=== PATIENT | male | born 1980 | race Two or more races ===

== ENCOUNTER 2019-10-14 18:56 | Emergency (ER) | payer OTHER ==
[~2019-10-14] VITALS: Ht 175.3 cm; Wt 81.6 kg
--- NOTE | 2019-10-14 19:15 | NUR ---
ED Nurse Note: Report given to LAUREN Ulloa.
[2019-10-14 19:20] VITALS: BP 118/71
--- NOTE | 2019-10-14 19:20 | NUR ---
ED Nurse Note: Pt walked into ED from [facility] for medical clearence to go back to facility. 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 Pt denies wanting to harm himself or others, but states he has been feeling anxious and having panic attacks. Pt is aaox4, smells of alcohol, no cardiac or respiratory distress noted. IV line established and blood drawn and sent to lab. Will continue to monitor.
--- NOTE | 2019-10-14 19:45 | Emergency Room Report ---
History of Present Illness General Chief Complaint: General Complaint Source: Patient Present Illness HPI 39-year-old male with history of alcohol abuse currently in sober living here for medical clearance to go back to sober living. Patient was that he drank today. Denies any other drug use. Patient is not walking straight, alcohol odor has been noticed. Complains of extreme nausea. Vomits in the triage note. Denies any abdominal pain, chest pain, fever and chills, shortness of breath, headache and dizziness. Denies any SI and HI. Allergies: Coded Allergies: No Known Allergies (Unverified , 10/14/19) Patient History Past Medical History: see triage record Past Surgical History: none Family History: none Social History: ETOH Immunizations: UTD Reviewed Nursing Documentation: PMH: Agreed; PSxH: Agreed Nursing Documentation-PMH Past Medical History: No History, Except For History Of Psychiatric Problem: Yes - Depression Review of Systems All Other Systems: negative except mentioned in HPI Physical Exam Vital Signs Date Time Temp Pulse Resp B/P (MAP) Pulse Ox O2 Delivery O2 Flow Rate FiO2 10/14/19 19:04 98.1 96 16 118/71 (87) 99 Room Air Sp02 EP Interpretation: reviewed, normal General Appearance: other - Toxic Head: atraumatic Eyes: PERRL, lids + conjunctiva normal ENT: hearing intact, no angioedema Neck: supple/symm/no masses, no meningismus Respiratory: effort normal, no wheezing, chest symmetrical Cardiovascular: regular rate, rhythm, no edema Gastrointestinal: non-tender, no mass, non-distended, no rebound/guarding, normal bowel sounds Musculoskeletal: other - Altered gait Neurologic: oriented x3, sensory intact, normal speech Psychiatric: no suicidal/homicidal ideation, anxious Skin: no rash, well hydrated Lymphatic: normal inspection Medical Decision Making PA Attestation All diagnoses and treatment plans were reviewed and discussed with my supervising physician Dr. Farias Diagnostic Impression: Primary Impression: Alcohol intoxication Additional Impression: Alcohol withdrawal ER Course 39-year-old male with history of alcohol abuse currently in sober living here for medical clearance to go back to sober living. Patient was that he drank today. Denies any other drug use. Patient is not walking straight, alcohol odor has been noticed. Complains of extreme nausea. Vomits in the triage note. Denies any abdominal pain, chest pain, fever and chills, shortness of breath, headache and dizziness. Denies any SI and HI. Ddx considered but are not limited to: Alcohol intoxication with altered level of consciousness, alcohol intoxication causing pancreatitis, alcohol abuse, multi drug use and alcohol intoxication Vital signs: are WNL, pt. is afebrile H&PE are most consistent with: alcohol intoxication, alcohol withdrawal , alcohol poisoning ORDERS: Alcohol serum level, tox screen, UA, CBC, CMP, ER intervention: NS bolus, Zofran, Pepcid I signed out the patient to Dr. Farias at 8PM DISCHARGE: At this time pt. is stable for d/c to home. Will provide printed patient care instructions, and any necessary prescriptions. Care plan and follow up instructions have been discussed with the patient prior to discharge. 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 However this was not observed. Due to this new information patient needs to be further worked up for possible toxic effects. 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 The facilities phone number is Last Vital Signs Date Time Temp Pulse Resp B/P (MAP) Pulse Ox O2 Delivery O2 Flow Rate FiO2 10/14/19 19:04 98.1 96 16 118/71 (87) 99 Room Air Disposition: HOME, SELF-CARE Condition: Stable Dev Mclaughlin Oct 14, 2019 19:45
[2019-10-14 19:54] LABS: BASOPHILS % (AUTO) 0.9 % (0.0-2.0); HEMATOCRIT 50.7 % (42.0-52.0); HEMOGLOBIN 16.6 G/DL (14.2-18.0); LYMPHOCYTES % (AUTO) 14.7 % (20.0-45.0); MEAN CORPUSCULAR VOLUME 93 FL (80-99); MONOCYTES % (AUTO) 3.6 % (1.0-10.0); NEUTROPHILS % (AUTO) 80.9 % (45.0-75.0); PLATELET COUNT 315 K/UL (150-450); RED BLOOD COUNT 5.45 M/UL (4.70-6.10); WHITE BLOOD COUNT 8.8 K/UL (4.8-10.8)
[2019-10-14 19:59] LABS: ANION GAP 15 mmol/L (5-15); BLOOD UREA NITROGEN 10 mg/dL (7-18); CALCIUM 9.6 MG/DL (8.5-10.1); CARBON DIOXIDE 24 MMOL/L (21-32); CHLORIDE 103 MMOL/L (98-107); CREATININE 2.5 MG/DL (0.55-1.30); SODIUM 142 MMOL/L (136-145)
[2019-10-14 20:04] LABS: ALANINE AMINOTRANSFERASE 33 U/L (12-78); ALBUMIN 4.9 G/DL (3.4-5.0); ALBUMIN/GLOBULIN RATIO 1.3 (1.0-2.7); ALKALINE PHOSPHATASE 95 U/L (46-116); ASPARTATE AMINO TRANSFERASE 20 U/L (15-37); BILIRUBIN,TOTAL 0.2 MG/DL (0.2-1.0)
--- NOTE | 2019-10-14 21:00 | NUR ---
ED Nurse Note: Pt is sleeping in bed at this time. No acute distress noted. Will continue to monitor.
--- NOTE | 2019-10-14 22:15 | NUR ---
ED Nurse Note: Attempted to call coordinator at [facility] with no answer. Will continue to call facility.
--- NOTE | 2019-10-14 22:30 | NUR ---
ED Nurse Note: ROXANN is okay with releasing pt to significant other and giving medical clearence for pt to return to rehab facility if neccessary. Urine specimen not obtained, ROXANN aware.
[2019-10-14 22:45] VITALS: BP 120/88
--- NOTE | 2019-10-14 22:45 | NUR ---
ER DISCHARGE NOTE: Patient is cleared to be discharged per ERMD, pt is aox4, on room air, with stable vital signs. pt was given dc instructions, pt was able to verbalize understanding, pt id band and iv site removed without complications. pt is able to ambulate with steady gait. pt took all belongings and left with significant other.
--- NOTE | 2019-10-15 09:50 | Diagnostic Imaging Report ---
Indication: Shortness of breath Technique: One view of the chest Comparison: none Findings: Lungs and pleural spaces are clear. Heart size is normal. Impression: No acute process
== END 2019-10-14 22:45 | disposition home or self-care (01) ==
LOC: EMR 19:50
DX: F10.239 Alcohol dependence with withdrawal, unspecified (principal); F10.229 Alcohol dependence with intoxication, unspecified; F32.9 Major depressive disorder, single episode, unspecified
CPT/HCPCS: 36415; 71045; 80053; 85025; 96361; 96374; 96375; G0480; G0481; J2405; J7030; S0028; Z7502; 99284